=== PATIENT | male | born 1990 | race Caucasian/White ===

== ENCOUNTER 2017-02-07 17:17 | Emergency (ER) | payer SELFPAY ==
[~2017-02-07] VITALS: Ht 185.4 cm; Wt 81.6 kg
[~2017-02-07 17:17] MED LIST: AGM875T PO; AMOX500C2 PO; IBP800T PO; NAPR-243 PO; TRM50T PO
--- NOTE | 2017-02-07 18:58 | ED Upper Extremity ---
General Stated Complaint: LT MIDDLE FINGER LACERATION Source: patient Exam Limitations: no limitations History of Present Illness Time seen by provider: 18:56 Initial Comments To ER with a laceration to the dorsal aspect left middle finger that occurred 4 days ago while playing with a knife. He did not seek care at that time. He is able to fully flex and extend the fingers but tonight became concerned when he noticed what looked like a foreign body that was whitish in color sticking out of the wound. Onset: just prior to arrival Severity: mild Pain/Injury Location: left 3rd finger Allergies and Home Medications Allergies Coded Allergies: BENEDICTANo Known Allergies (Unverified Allergy, Mild, 02/17/09) Home Medications Amoxicillin/Clavulanate K 1 Tab Tablet, 1 TAB PO BID for 7 Days, Ref 0 Prescribed by: LAKIA SOMMERS on 06/07/1206 Cephalexin 500 Mg Capsule, 500 MG PO TID, #15 Prescribed by: MORRIS ORO on 02/07/17 1924 Ibuprofen 800 Mg Tab, 800 MG PO Q8HR PRN, #30 Ref 0 Prescribed by: LAKIA SOMMERS on 06/07/12 0906 Constitutional: see HPI EENTM: see HPI Respiratory: no symptoms reported Cardiovascular: no symptoms reported Genitourinary: no symptoms reported Musculoskeletal: see HPI Skin: no symptoms reported Psychiatric/Neurological: No Symptoms Reported Past Nntrioh-Yzyxod-Rfygqd Hx Patient Social History Recent Foreign Travel: No Contact w/Someone Who Travel: No Surgeries HX Surgeries: No Respiratory Hx Respiratory Disorders: No Cardiovascular Hx Cardiac Disorders: No Neurological Hx Neurological Disorders: No Reproductive System Hx Reproductive Disorders: No Genitourinary Hx Genitourinary Disorders: No Gastrointestinal Hx Gastrointestinal Disorders: No Musculoskeletal Hx Musculoskeletal Disorders: No Musculoskeletal Disorders: Fractures Endocrine Hx Endocrine Disorders: No HEENT HX ENT Disorders: No Cancer Hx Cancer: No Psychosocial Hx Psychiatric Problems: No Integumentary HX Skin/Integumentary Disorder: No Blood Transfusions Hx Blood Disorders: No Physical Exam Vital Signs Vital Sign - Last 12Hours 02/07/17 18:47 Temp 98.8 Pulse 53 Resp 20 B/P (MAP) 136/99 Pulse Ox 99 O2 Delivery Room Air Capillary Refill : General Appearance: WD/WN, no apparent distress HEENT: PERRL/EOMI, normal ENT inspection Neck: non-tender, full range of motion Respiratory: no respiratory distress, no accessory muscle use Gastrointestinal: normal bowel sounds, non tender, soft Shoulder: normal inspection, non-tender Elbow/Forearm: normal inspection, non-tender Wrist: Yes normal inspection, Yes non-tender Hand: Left, laceration (there is a 1 cm laceration to the dorsal aspect of the PIP joint left middle finger. There is no active bleeding. There is in fact a whitish foreign body very hard slightly protruding from the wound. I was able to remove this with a pair of pickups and scissors. This was a sliver of bone or at least appeared to be. As mentioned he maintains full ability to fully extend the finger. There is no erythema or drainage from this wound.) Neurologic/Tendon: normal sensation, normal motor functions, normal tendon functions Neurologic/Psychiatric: alert, normal mood/affect, oriented x 3 Skin: normal color, warm/dry Progress/Results/Core Measures Results/Orders My Orders Orders - MORRIS ORO APRN Hand, Left, 3 Views (02/07/17 18:55) Dipht,Pertuss(Acell),Tet Adult (Boostrix (02/07/17 19:00) Medications Given in ED Current Medications Medications Dose Ordered Sig/Daniel Route Start Time Stop Time Status Last Admin Dose Admin Diphtheria/ Tetanus/Acell Pertussis 0.5 ml ONCE ONCE IM 02/07/17 19:00 02/07/17 19:01 DC 02/07/17 19:10 0.5 ML Vital Signs/I&O Vital Sign - Last 12Hours 02/07/17 18:47 Temp 98.8 Pulse 53 Resp 20 B/P (MAP) 136/99 Pulse Ox 99 O2 Delivery Room Air Departure Impression Impression: Primary Impression: Finger laceration Disposition: 01 HOME, SELF-CARE Condition: Stable Departure-Patient Inst. Decision time for Depature: 18:58 Referrals: [facility] (PCP/Family) Primary Care Physician KEAGAN MEDELLIN MICHAEL P MD Patient Instructions: Diphtheria and Tetanus Toxoids Vaccine Add. Discharge Instructions: 1. Return to ER for any concerns 2. Follow-up with your doctor later this week Scripts Cephalexin (Keflex) 500 Mg Capsule 500 MG PO TID, #15 CAP Prov: MORRIS ORO APRN 02/07/17 MORRIS ORO APRN Feb 07, 2017 18:58
[2017-02-07] MEDS ORDERED: TETANUS,DIPTH,PERTUSS P/F (BOOSTRIX) 0.5 ML VIAL IM ONE (19:00)
--- NOTE | 2017-02-07 19:20 | Diagnostic Imaging Report ---
EXAM: Hand, left, 3 views. INDICATION: Left hand injury. Laceration to third finger. COMPARISON: Left hand radiograph from 01/22/2015. FINDINGS: No fracture or malalignment. Soft tissue shadows are unremarkable. No significant change. No acute findings in the left hand. IMPRESSION: Negative left hand radiographs. Dictated by: Dictated on workstation # [id number]
[2017-02-07] MEDS ORDERED: CEPH-507 PO (19:24)
[2017-02-07 19:54] VITALS: BP 0/0
== END 2017-02-07 19:54 | disposition home or self-care (01) ==
LOC: EDUNIT# 17:17 → ER 17:21
DX: Z04.3 Encounter for examination and observation following other accident (principal)
CPT/HCPCS: 73130; 90471; 90715; 99284

== ENCOUNTER 2017-07-27 20:00 | Emergency (ER) | payer SELFPAY ==
[~2017-07-27] VITALS: Ht 185.4 cm; Wt 81.6 kg
[~2017-07-27 20:00] MED LIST changes: +CEPH-507 PO; +LORazepam INJ 2 MG/ML (ATIVAN) VIAL ONE
--- NOTE | 2017-07-27 20:06 | ED Psychosocial ---
General Stated Complaint: OVERDOSE Source: patient Exam Limitations: no limitations History of Present Illness Time seen by provider: 20:04 Initial Comments To ER per EMS with reports of "bad trip" after taking "4 hits of acid" tonight. He states he has done a lot more than this in the past and is not sure why he is having the anxiety and paranoia associated with it tonight. EMS reported some erratic behavior in route to the hospital but at the time of arrival despite no intervention he is calm alert and oriented. Timing/Duration: constant Severity: moderate Allergies and Home Medications Allergies Coded Allergies: NKANo Known Allergies (Unverified Allergy, Mild, 02/17/09) Home Medications Amoxicillin/Clavulanate K 1 Tab Tablet, 1 TAB PO BID for 7 Days, Ref 0 Prescribed by: LAKIA SOMMERS on 06/07/12 0906 Cephalexin 500 Mg Capsule, 500 MG PO TID, #15 Prescribed by: MORRIS ORO on 02/07/17 1924 Ibuprofen 800 Mg Tab, 800 MG PO Q8HR PRN, #30 Ref 0 Prescribed by: LAKIA SOMMERS on 06/07/12 0906 Constitutional: see HPI EENTM: see HPI Respiratory: no symptoms reported Cardiovascular: no symptoms reported Genitourinary: no symptoms reported Musculoskeletal: no symptoms reported Skin: no symptoms reported Psychiatric/Neurological: See HPI Past Mpdkaop-Pfmlmt-Znezwz Hx Patient Social History Former Smoker, Quit: Jan 10, 2017 Recent Hopitalizations: No Surgeries History of Surgeries: No Respiratory History of Respiratory Disorde: No Cardiovascular History of Cardiac Disorders: No Neurological History of Neurological Disord: No Reproductive System Hx Reproductive Disorders: No Gastrointestinal History of Gastrointestinal Di: No Musculoskeletal History of Musculoskeletal Dis: No Musculoskeletal Disorders: Fractures Endocrine History of Endocrine Disorders: No Cancer History of Cancer: No Psychosocial History of Psychiatric Problem: No Integumentary History of Skin or Integumenta: No Blood Transfusions History of Blood Disorders: No Physical Exam Vital Signs Vital Sign - Last 12Hours 07/27/17 20:00 Temp 98.0 Pulse 118 Resp 21 B/P (MAP) 167/83 (111) Pulse Ox 98 Capillary Refill : General Appearance: WD/WN, no apparent distress HEENT: PERRL/EOMI, normal ENT inspection Neck: non-tender, full range of motion Respiratory: no respiratory distress, no accessory muscle use Cardiovascular: regular rate, rhythm, no murmur Gastrointestinal: normal bowel sounds, non tender Neurologic/Psychiatric: alert, normal mood/affect, oriented x 3 Appearance/Memory: appropriate appearance, appropriate insight, disheveled Behavior/Eye Contact: cooperative, good eye contact Thoughts/Hallucinations: normal thought pattern, no apparent hallucination, No auditory hallucinations, No delusions, No flight of ideas Skin: normal color, warm/dry Progress/Results/Core Measures Results/Orders Lab Results Laboratory Tests Test 07/27/17 19:13 07/27/17 20:16 Range/Units Urine Color YELLOW Urine Clarity CLEAR Urine pH 7 5-9 Urine Specific [place] 1.010 L 1.016-1.022 Urine Protein 1+ H NEGATIVE Urine Glucose (UA) NEGATIVE NEGATIVE Urine Ketones NEGATIVE NEGATIVE Urine Nitrite NEGATIVE NEGATIVE Urine Bilirubin NEGATIVE NEGATIVE Urine Urobilinogen NORMAL NORMAL MG/DL Urine Leukocyte Esterase NEGATIVE NEGATIVE Urine RBC (Auto) NEGATIVE NEGATIVE Urine RBC NONE /HPF Urine WBC NONE /HPF Urine Squamous Epithelial Cells RARE /HPF Urine Crystals NONE /LPF Urine Bacteria NONE /HPF Urine Casts NONE /LPF Urine Mucus NEGATIVE /LPF Urine Culture Indicated NO Urine Opiates Screen NEGATIVE NEGATIVE Urine Oxycodone Screen NEGATIVE NEGATIVE Urine Methadone Screen NEGATIVE NEGATIVE Urine Propoxyphene Screen NEGATIVE NEGATIVE Urine Barbiturates Screen NEGATIVE NEGATIVE Ur Tricyclic Antidepressants Screen NEGATIVE NEGATIVE Urine Phencyclidine Screen NEGATIVE NEGATIVE Urine Amphetamines Screen NEGATIVE NEGATIVE Urine Methamphetamines Screen NEGATIVE NEGATIVE Urine Benzodiazepines Screen NEGATIVE NEGATIVE Urine Cocaine Screen NEGATIVE NEGATIVE Urine Cannabinoids Screen POSITIVE H NEGATIVE White Blood Count 9.3 4.3-11.0 10^3/uL Red Blood Count 4.65 4.35-5.85 10^6/uL Hemoglobin 14.3 13.3-17.7 G/DL Hematocrit 40 40-54 % Mean Corpuscular Volume 85 80-99 FL Mean Corpuscular Hemoglobin 31 25-34 PG Mean Corpuscular Hemoglobin Concent 36 32-36 G/DL Red Cell Distribution Width 12.6 10.0-14.5 % Platelet Count 257 130-400 10^3/uL Mean Platelet Volume 9.6 7.4-10.4 FL Neutrophils (%) (Auto) 59 42-75 % Lymphocytes (%) (Auto) 28 12-44 % Monocytes (%) (Auto) 10 0-12 % Eosinophils (%) (Auto) 3 0-10 % Basophils (%) (Auto) 0 0-10 % Neutrophils # (Auto) 5.5 1.8-7.8 X 10^3 Lymphocytes # (Auto) 2.6 1.0-4.0 X 10^3 Monocytes # (Auto) 0.9 0.0-1.0 X 10^3 Eosinophils # (Auto) 0.3 0.0-0.3 10^3/uL Basophils # (Auto) 0.0 0.0-0.1 10^3/uL Sodium Level 136 135-145 MMOL/L Potassium Level 2.9 L 3.6-5.0 MMOL/L Chloride Level 103 98-107 MMOL/L Carbon Dioxide Level 21 21-32 MMOL/L Anion Gap 12 5-14 MMOL/L Blood Urea Nitrogen 12 7-18 MG/DL Creatinine 0.95 0.60-1.30 MG/DL Estimat Glomerular Filtration Rate > 60 BUN/Creatinine Ratio 13 Glucose Level 215 H 70-105 MG/DL Calcium Level 8.5 8.5-10.1 MG/DL Total Bilirubin 0.3 0.1-1.0 MG/DL Aspartate Amino Transf (AST/SGOT) 34 5-34 U/L Alanine Aminotransferase (ALT/SGPT) 36 0-55 U/L Alkaline Phosphatase 95 40-136 U/L Total Protein 7.0 6.4-8.2 GM/DL Albumin 4.0 3.2-4.5 GM/DL Salicylates Level < 5.0 L 5.0-20.0 MG/DL Acetaminophen Level < 10 L 10-30 UG/ML Serum Alcohol < 10 <10 MG/DL My Orders Orders - MORRIS ORO APRN Lorazepam Injection (Ativan Injection) (07/27/17 20:15) Cbc With Automated Diff (07/27/17 20:02) Comprehensive Metabolic Panel (07/27/17 20:02) Ua Culture If Indicated (07/27/17 20:02) Salicylate (07/27/17 20:02) Acetaminophen (07/27/17 20:02) Alcohol (07/27/17 20:02) Drug Screen Stat (Urine) (07/27/17 20:02) Saline Lock/Iv-Start (07/27/17 20:02) Ekg Tracing (07/27/17 20:02) Potassium Chloride (Tablet) (K Dur Table (07/27/17 21:15) Lorazepam Injection (Ativan Injection) (07/27/17 21:15) Medications Given in ED Current Medications Medications Dose Ordered Sig/Daniel Route Start Time Stop Time Status Last Admin Dose Admin Lorazepam 1 mg ONCE ONCE IVP 07/27/17 20:15 07/27/17 20:16 DC 07/27/17 20:05 1 MG Lorazepam 1 mg ONCE ONCE IVP 07/27/17 21:15 07/27/17 21:16 DC 07/27/17 21:17 1 MG Potassium Chloride 40 meq ONCE ONCE PO 07/27/17 21:15 07/27/17 21:16 DC 07/27/17 21:17 40 MEQ Vital Signs/I&O Vital Sign - Last 12Hours 07/27/17 20:00 Temp 98.0 Pulse 118 Resp 21 B/P (MAP) 167/83 (111) Pulse Ox 98 Departure Impression Impression: Primary Impression: Drug-induced anxiety disorder Additional Impression: LSD reaction Disposition: 01 HOME, SELF-CARE Condition: Stable Departure-Patient Inst. Decision time for Depature: 22:20 Referrals: [facility] (PCP/Family) Primary Care Physician Patient Instructions: ALCOHOL AND SUBSTANCE ABUSE MORRIS ORO APRN Jul 27, 2017 20:05
[2017-07-27] MEDS ORDERED: LORazepam INJ 2 MG/ML (ATIVAN) VIAL IVP ONE ×2 (20:15→21:15)
[2017-07-27 20:22] LABS: BASOPHILS % (AUTO) 0 % (0-10); EOSINOPHILS # (AUTO) 0.3 10^3/uL (0.0-0.3); EOSINOPHILS % (AUTO) 3 % (0-10); HEMATOCRIT 40 % (40-54); HEMOGLOBIN 14.3 G/DL (13.3-17.7); LYMPHOCYTES # (AUTO) 2.6 X 10^3 (1.0-4.0); LYMPHOCYTES % (AUTO) 28 % (12-44); MEAN CORPUSCULAR HEMOGLOBIN 31 PG (25-34); MEAN CORPUSCULAR HGB CONC 36 G/DL (32-36); MEAN CORPUSCULAR VOLUME 85 FL (80-99); MEAN PLATELET VOLUME 9.6 FL (7.4-10.4); MONOCYTES # (AUTO) 0.9 X 10^3 (0.0-1.0); MONOCYTES % (AUTO) 10 % (0-12); NEUTROPHILS # (AUTO) 5.5 X 10^3 (1.8-7.8); NEUTROPHILS % (AUTO) 59 % (42-75); PLATELET COUNT 257 10^3/uL (130-400); RED BLOOD COUNT 4.65 10^6/uL (4.35-5.85); RED CELL DISTRIBUTION WIDTH 12.6 % (10.0-14.5); WHITE BLOOD COUNT 9.3 10^3/uL (4.3-11.0)
[2017-07-27 20:51] LABS: ACETAMINOPHEN < 10 UG/ML (10-30); ALANINE AMINOTRANSFERASE 36 U/L (0-55); ALKALINE PHOSPHATASE 95 U/L (40-136); BILIRUBIN,TOTAL 0.3 MG/DL (0.1-1.0); BUN/CREATININE RATIO 13; CALCIUM 8.5 MG/DL (8.5-10.1); CARBON DIOXIDE 21 MMOL/L (21-32); CHLORIDE 103 MMOL/L (98-107); CREATININE SERUM 0.95 MG/DL (0.60-1.30); GFR ESTIMATED > 60; GLUCOSE 215 MG/DL (70-105); POTASSIUM 2.9 MMOL/L (3.6-5.0); SALICYLATE < 5.0 MG/DL (5.0-20.0); SODIUM 136 MMOL/L (135-145)
[2017-07-27] MEDS ORDERED: KCL 20 MEQ TAB (K-DUR) PO ONE (21:15)
[2017-07-27 21:24] LABS: BILIRUBIN,URINE NEGATIVE (NEGATIVE); CLARITY,URINE CLEAR; COLOR,URINE YELLOW; GLUCOSE, URINE (UA) NEGATIVE (NEGATIVE); KETONES,URINE NEGATIVE (NEGATIVE); LEUKOCYTE ESTERASE ,URINE NEGATIVE (NEGATIVE); NITRITE,URINE NEGATIVE (NEGATIVE); PH,URINE 7 (5-9); PROTEIN,URINE 1+ (NEGATIVE); UROBILINOGEN,URINE NORMAL (NORMAL)
[2017-07-27 21:30] LABS: SQUAMOUS EPITHELIAL CELL,UR RARE /HPF
[2017-07-27 21:38] LABS: AMPHETAMINE SCREEN, URINE NEGATIVE (NEGATIVE); BENZODIAZEPINES SCREEN URINE NEGATIVE (NEGATIVE); CANNABINOID SCREEN, URINE POSITIVE (NEGATIVE); COCAINE SCREEN URINE NEGATIVE (NEGATIVE); METHAMPHETAMINE SCREEN URINE S NEGATIVE (NEGATIVE)
[2017-07-27 21:39] LABS: BARBITURATE SCREEN URINE NEGATIVE (NEGATIVE); METHADONE STAT NEGATIVE (NEGATIVE); OPIATE SCREEN URINE NEGATIVE (NEGATIVE); OXYCODONE STAT NEGATIVE (NEGATIVE); PROPOXYPHENE STAT NEGATIVE (NEGATIVE); TRICYCLIC ANTIDEPRESSANTS SCRE NEGATIVE (NEGATIVE)
[2017-07-27 22:35] VITALS: BP 141/79
== END 2017-07-27 22:35 ==
LOC: EDUNIT# 20:00 → ER 20:01
DX: T40.8X1A Poisoning by lysergide [LSD], accidental (unintentional), initial encounter (principal); F41.8 Other specified anxiety disorders; Z87.81 Personal history of (healed) traumatic fracture
CPT/HCPCS: 36415; 80053; 80306; 80320; 80329; 81000; 85025; 93005

== ENCOUNTER 2021-11-29 01:05 | Emergency (ER) | payer BC ==
[~2021-11-29] VITALS: Ht 185.4 cm; Wt 88.5 kg
[~2021-11-29 01:05] MED LIST changes: -LORazepam INJ 2 MG/ML (ATIVAN) VIAL ONE
[2021-11-29 01:44] LABS: BASOPHILS # (AUTO) 0.1 10^3/uL (0.0-0.1); BASOPHILS % (AUTO) 1 % (0-10); EOSINOPHILS # (AUTO) 0.5 10^3/uL (0.0-0.3); EOSINOPHILS % (AUTO) 6 % (0-10); HEMATOCRIT 44 % (40-54); HEMOGLOBIN 14.8 g/dL (13.3-17.7); LYMPHOCYTES # (AUTO) 3.9 10^3/uL (1.0-4.0); LYMPHOCYTES % (AUTO) 43 % (12-44); MEAN CORPUSCULAR HEMOGLOBIN 30 pg (25-34); MEAN CORPUSCULAR HGB CONC 34 g/dL (32-36); MEAN CORPUSCULAR VOLUME 89 fL (80-99); MEAN PLATELET VOLUME 9.9 fL (9.0-12.2); MONOCYTES # (AUTO) 0.8 10^3/uL (0.0-1.0); MONOCYTES % (AUTO) 9 % (0-12); NEUTROPHILS # (AUTO) 3.8 10^3/uL (1.8-7.8); NEUTROPHILS % (AUTO) 42 % (42-75); PLATELET COUNT 281 10^3/uL (130-400); WHITE BLOOD COUNT 9.1 10^3/uL (4.3-11.0)
[2021-11-29 01:52] LABS: ALBUMIN 4.3 GM/DL (3.2-4.5)
[2021-11-29 01:53] LABS: POTASSIUM 3.2 MMOL/L (3.6-5.0)
[2021-11-29 01:54] LABS: CALCIUM 9.4 MG/DL (8.5-10.1)
[2021-11-29 01:55] LABS: TOTAL PROTEIN 7.5 GM/DL (6.4-8.2)
[2021-11-29 01:57] LABS: BILIRUBIN,TOTAL 0.2 MG/DL (0.1-1.0)
[2021-11-29 01:59] LABS: CREATININE SERUM 0.8 MG/DL (0.60-1.30)
--- NOTE | 2021-11-29 02:42 | ED General ---
General Chief Complaint: Respiratory Problems Stated Complaint: SOB Nursing Triage Note: pt to rm 10 with complaint of SOA for 3-4 hrs. History of Present Illness Date Seen by Provider: November 28, 2021 Time Seen by Provider: 01:39 Initial Comments 31-year-old male with PMH of asthma is here for COVID testing. Patient had some shortness of breath earlier today but he took in his inhaler and it improved. Denies fever, shortness of breath, cough, chest pain, abdominal pain, GI symptom s. Patient's son is suspected to have COVID and that is why patient wanted to get tested. Allergies and Home Medications Allergies Coded Allergies: NKANo Known Allergies (Unverified Allergy, Mild, 02/17/09) Patient Home Medication List Home Medication List Reviewed: Yes Amoxicillin/Clavulanate K (Augmentin 875-125 Tablet) 1 Tab Tablet, 1 TAB PO BID Prescribed by: LAKIA SOMMERS on 06/07/12 0906 Cephalexin (Keflex) 500 Mg Capsule, 500 MG PO TID Prescribed by: MORRIS ORO on 02/07/17 192 Ibuprofen (Motrin) 800 Mg Tab, 800 MG PO Q8HR PRN Prescribed by: LAKIA SOMMERS on 06/07/12 0906 Review of Systems Review of Systems Constitutional: no symptoms reported EENTM: no symptoms reported Respiratory: no symptoms reported Cardiovascular: no symptoms reported Gastrointestinal: no symptoms reported Genitourinary: no symptoms reported Musculoskeletal: no symptoms reported Skin: no symptoms reported Psychiatric/Neurological: No Symptoms Reported Hematologic/Lymphatic: No Symptoms Reported Immunological/Allergic: no symptoms reported Past Svnnbdv-Atvqvc-Jyjidj Hx Patient Social History Tobacco Use?: Yes Tobacco type used: Cigarettes Smoking Status: Current Everyday Smoker Use of E-Cig and/or Vaping dev: No Substance use?: No Alcohol Use?: Yes Alcohol Frequency: Once in a while Immunizations Up To Date Tetanus Booster (TDap): Unknown Influenza Vaccine Up-to-Date: No; Not Current Past Medical History Surgeries: No Respiratory: No Cardiac: No Neurological: No Reproductive Disorders: No Gastrointestinal: No Musculoskeletal: No Fractures Endocrine: No Cancer: No Psychosocial: No Integumentary: No Blood Disorders: No Physical Exam Vital Signs Vital Signs - First Documented 11/29/21 11/29/21 11/29/21 01:18 01:35 02:50 Temp 37.0 Pulse 106 Resp 18 B/P (MAP) 149/90 (109) Pulse Ox 97 O2 Delivery Room Air O2 Flow Rate 97.00 Capillary Refill : Height, Weight, BMI Height: 6'1.00" Weight: 180lbs. oz. 81.018991lq; 25.00 BMI Method:Stated General Appearance: No Apparent Distress Neck: Full Range of Motion Respiratory: Chest Non Tender, Lungs Clear Cardiovascular: Regular Rate, Rhythm Gastrointestinal: Normal Bowel Sounds, Non Tender, Soft Back: Normal Inspection Neurologic/Psychiatric: Alert, Oriented x3 Progress/Results/Core Measures Suspected Sepsis SIRS Temperature: Pulse: 106 Respiratory Rate: Laboratory Tests 11/29/21 01:36: White Blood Count 9.1 Blood Pressure 149 /90 Mean: 109 Laboratory Tests 11/29/21 01:36: Creatinine 0.80, Platelet Count 281, Total Bilirubin 0.2 Results/Orders Lab Results Laboratory Tests Test 11/29/21 01:25 11/29/21 01:36 Range/Units Influenza Type A (RT-PCR) Not Detected Not Detecte Influenza Type B (RT-PCR) Not Detected Not Detecte SARS-CoV-2 RNA (RT-PCR) Not Detected Not Detecte White Blood Count 9.1 4.3-11.0 10^3/uL Red Blood Count 4.91 4.30-5.52 10^6/uL Hemoglobin 14.8 13.3-17.7 g/dL Hematocrit 44 40-54 % Mean Corpuscular Volume 89 80-99 fL Mean Corpuscular Hemoglobin 30 25-34 pg Mean Corpuscular Hemoglobin Concent 34 32-36 g/dL Red Cell Distribution Width 13.0 10.0-14.5 % Platelet Count 281 130-400 10^3/uL Mean Platelet Volume 9.9 9.0-12.2 fL Immature Granulocyte % (Auto) 0 % Neutrophils (%) (Auto) 42 42-75 % Lymphocytes (%) (Auto) 43 12-44 % Monocytes (%) (Auto) 9 0-12 % Eosinophils (%) (Auto) 6 0-10 % Basophils (%) (Auto) 1 0-10 % Neutrophils # (Auto) 3.8 1.8-7.8 10^3/uL Lymphocytes # (Auto) 3.9 1.0-4.0 10^3/uL Monocytes # (Auto) 0.8 0.0-1.0 10^3/uL Eosinophils # (Auto) 0.5 H 0.0-0.3 10^3/uL Basophils # (Auto) 0.1 0.0-0.1 10^3/uL Immature Granulocyte # (Auto) 0.0 0.0-0.1 10^3/uL Sodium Level 144 135-145 MMOL/L Potassium Level 3.2 L 3.6-5.0 MMOL/L Chloride Level 109 H 98-107 MMOL/L Carbon Dioxide Level 19 L 21-32 MMOL/L Anion Gap 16 H 5-14 MMOL/L Blood Urea Nitrogen 13 7-18 MG/DL Creatinine 0.80 0.60-1.30 MG/DL Estimat Glomerular Filtration Rate 121 BUN/Creatinine Ratio 16 Glucose Level 110 H 70-105 MG/DL Calcium Level 9.4 8.5-10.1 MG/DL Corrected Calcium 9.2 8.5-10.1 MG/DL Total Bilirubin 0.2 0.1-1.0 MG/DL Aspartate Amino Transf (AST/SGOT) 26 5-34 U/L Alanine Aminotransferase (ALT/SGPT) 23 0-55 U/L Alkaline Phosphatase 87 40-136 U/L Total Protein 7.5 6.4-8.2 GM/DL Albumin 4.3 3.2-4.5 GM/DL My Orders Orders - OSIRIS CARVALHO MD Covid 19 Inhouse Test (11/29/21 01:28) Influenza A And B By Pcr (11/29/21 01:28) Cbc With Automated Diff (11/29/21 01:28) Comprehensive Metabolic Panel (11/29/21 01:28) Vital Signs/I&O 11/29/21 11/29/21 11/29/21 01:18 01:35 02:50 Temp 37.0 Pulse 106 89 Resp 18 B/P (MAP) 149/90 (109) 129/89 Pulse Ox 97 94 O2 Delivery Room Air Room Air Room Air O2 Flow Rate 97.00 Capillary Refill : Blood Pressure Mean: 109 Progress Note : Progress Note 1. COVID testing is negative - Follow up with PC as needed Departure Impression Primary Impression: Lab test negative for COVID-19 virus Disposition: HOME, SELF-CARE Condition: Stable Departure-Patient Inst. Referrals: [facility] (PCP/Family) Primary Care Physician Patient Instructions: COVID-19 Overview Add. Discharge Instructions: Use Albuterol inhaler as needed Follow up with PCP as needed -The patient was seen in the ED, and treated appropriately to presentation at a specific point in time. Patient is informed that there is a possibility that disease and illness can evolve and change in acuity rapidly or slowly after patient is discharged from the ER. Precautionary advice given to the patient for immediate return to ER if symptoms worsen or do not resolve, and to seek emergency care sooner rather than later. Pt also advised on the importance of PCP follow up and compliance with management and follow up plan with PCP and/or specialist, as this is part of the management plan. Pt verbally expressed unders tanding. All discharge instructions reviewed with patient and/or family. Voiced understanding. OSIRIS CARVALHO MD November 29, 2021 02:42
[2021-11-29 02:50] VITALS: BP 129/89
== END 2021-11-29 02:52 | disposition home or self-care (01) ==
LOC: EDUNIT# 01:05 → ER 01:10
DX: Z20.822 Contact with and (suspected) exposure to COVID-19 (principal); J45.909 Unspecified asthma, uncomplicated; F17.210 Nicotine dependence, cigarettes, uncomplicated; Z79.899 Other long term (current) drug therapy
CPT/HCPCS: 36415; 80053; 85025; 87636